=== PATIENT | male | born 1955 | race Two or more races ===

== ENCOUNTER 2021-11-11 13:19 | Emergency (ER) | payer SELFPAY ==
[~2021-11-11] VITALS: Ht 170.2 cm; Wt 64.1 kg
--- NOTE | 2021-11-11 13:31 | NUR ---
[id number] FOR FINDING THE PATIENT SLEEPING IN [place] STATION. THE PATIENT DENIES HAVING ANY COMPLAINS. IN ROOM AIR AND DENIES SOB. RESPIRATION REGULAR AND UNLABORED. DENIES PAIN. THE PATIENT DENIES HAVING HX OF SEIZURE. PER [facility] REPORT THEY DID NOT WITNESS THE PATIENT HAVING SEIZURE AND PER [facility] NO ONE REPORTED THEY THE PATIENT HAVING SEIZURE. WILL CONTINUE TO MONITOR THE PATIENT.
--- NOTE | 2021-11-11 14:43 | NUR ---
URINE COLLECTED AND SENT TO LAB
--- NOTE | 2021-11-11 16:06 | NUR ---
Patient discharged to home in stable condition. Written and verbal after care instructions given. Patient verbalizes understanding of instruction. PT ambulatory with a steady gait
[2021-11-11 16:11] VITALS: BP 135/85
== END 2021-11-11 15:58 | disposition home or self-care (01) ==
LOC: ER 13:21
DX: Z00.00 Encounter for general adult medical examination without abnormal findings (principal); Z59.00 Homelessness unspecified